=== PATIENT | female | born 1990 | race Asian ===

== ENCOUNTER 2016-12-28 19:39 | Emergency (ER) | payer OTHER | END 2016-12-28 20:55 | disposition home or self-care (01) | DX: J40 Bronchitis, not specified as acute or chronic (principal); F17.200 Nicotine dependence, unspecified, uncomplicated ==

== ENCOUNTER 2017-10-16 14:47 | Emergency (ER) | payer OTHER ==
[2017-10-16 14:56] VITALS: BP 115/78
[2017-10-16] MEDS ORDERED: ACETAMINOPHEN 325 MG TABLET PO STA (14:58)
[2017-10-16] MEDS ORDERED: ACETAMINOPHEN 325 MG TABLET PO ONE (15:07)
[2017-10-16 15:21] LABS: RAPID STREP SCREEN REAGENT QC YELLOW (YELLOW)
--- NOTE | 2017-10-16 15:46 | ED Physician Documentation ---
History of Present Illness - Stated complaint Stated Complaint: FEVER/SORE THROAT - Chief complaint Chief Complaint: Heent - History obtained from History obtained from: Patient (pt is here with a sore throat for the past couple days, no fevers, some sinus congestion, no cough, no rashes, no travel.) Review of Systems Constitutional: reports: Chills. denies: Fever, Fatigue Eyes: denies: Decreased vision Ears: reports: Loss of hearing, Ear pain. denies: Drainage/discharge, Tinnitus/ ringing Nose: reports: Rhinorrhea / runny nose, Congestion, Sinus pressure / pain Throat: reports: Sore throat, Swollen tonsils. denies: Oral lesions / sores Cardiac: denies: Chest pain / pressure Respiratory: denies: Dyspnea, Cough, Hemoptysis GI: denies: Abdominal Pain, Nausea, Vomiting, Constipation, Diarrhea : denies: Dysuria Skin: denies: Rash, Lesions Musculoskeletal: denies: Neck pain, Back pain Neurologic: denies: Generalized weakness, Headache, LOC PD PAST MEDICAL HISTORY - Past Surgical History Past Surgical History: No - Present Medications Home Medications: Ambulatory Orders Medication Instructions Recorded Confirmed Dexamethasone [Decadron] 12 mg PO ONCE #3 tablet 10/16/17 Penicillin Vk 500 mg PO BID 10 Days #20 tablet 10/16/17 - Allergies Allergies/Adverse Reactions: Allergies Allergy/AdvReac Type Severity Reaction Status Date / Time No Known Drug Allergies Allergy Verified 10/16/17 14:56 - Social History Does the pt smoke?: Yes Smoking Status: Current every day smoker Does the pt drink ETOH?: No Does the pt have substance abuse?: No - Immunizations Immunizations are current?: Yes - POLST Patient has POLST: No PD ED PE NORMAL - Vitals Vital signs reviewed: Yes - General General: Alert and oriented X 3, No acute distress, Well developed/nourished - HEENT HEENT: Atraumatic, Ears normal, Moist mucous membranes. No: Pharynx benign ( exudate present) - Neck Neck: No: No adenopathy (anterior cervical LAD) - Cardiac Cardiac: Strong equal pulses. No: RRR (tachycardic but regular) - Respiratory Respiratory: No respiratory distress, Clear bilaterally - Derm Derm: Normal color, Warm and dry, No rash - Neuro Neuro: Alert and oriented X 3, Normal speech - Psych Psych: Normal mood, Normal affect Results - Vitals Vitals: Vital Signs - 24 hr 10/16/17 14:52 Temperature 38.6 C H Heart Rate 112 H Respiratory 20 Rate Blood Pressure 115/78 O2 Saturation 100 Oxygen O2 Source Room air - Labs Labs: Laboratory Tests 10/16/17 15:00 Group A Strep Rapid POSITIVE H PD MEDICAL DECISION MAKING - ED course Complexity details: d/w patient ED course: rapid strep is positive. no respiratory distress, MMM. discussed treatment with the pt. pt was given IM PCN in the ER with the decadron. she was given return precautions. Departure - Departure Disposition: Home, Self Care Clinical Impression: Strep pharyngitis Condition: Good Instructions: ED Strep Pharyngitis Conf Follow-Up: Sofi Gary MD [Primary Care Provider] - Prescriptions: Dexamethasone [Decadron] 12 mg PO ONCE #3 tablet Penicillin Vk 500 mg PO BID 10 Days #20 tablet Comments: take all of your medications as directed. Return to the ER for any new or worsening symptoms.
[2017-10-16] MEDS ORDERED: PENICILLIN G BENZATHINE 600,000 UNIT/ML SYRINGE IM STA (15:50)
[2017-10-16] MEDS ORDERED: DEXAMETHASONE 10 MG/ML VIAL PO STA (15:50)
[2017-10-16] MEDS ORDERED: DEXAMETHASONE 10 MG/ML VIAL ONE (16:05)
[2017-10-16] MEDS ORDERED: PENICILLIN G BENZATHINE 600,000 UNIT/ML SYRINGE IM ONE (16:06)
== END 2017-10-16 16:14 | disposition home or self-care (01) ==
LOC: ED 14:47
DX: J02.0 Streptococcal pharyngitis (principal); F17.200 Nicotine dependence, unspecified, uncomplicated
CPT/HCPCS: 87430; 96372; 99283; A9270